=== PATIENT | female | born 1985 | race Caucasian/White ===

== ENCOUNTER 2018-07-26 06:10 | Inpatient (IN) ==
[2018-07-26] MEDS ORDERED: Ketorolac Inj 30 MG/ML (IVP) Vial IV.PUSH ONE (06:27)
[2018-07-26] MEDS ORDERED: Sod Chloride 0.9% Inj 1,000 ML IV.SIG ONE (06:27)
[2018-07-26] MEDS ORDERED: Morphine Inj 4 MG/ML Vial IV.PUSH ONE ×4 (06:27→11:11)
--- NOTE | 2018-07-26 06:44 | ED ---
HPI General Chief complaint: Abdominal Pain Stated complaint: Rt side pain x 10 hrs Time Seen by Provider: 07/26/18 06:22 Source: patient Mode of arrival: ambulatory Limitations: no limitations History of Present Illness HPI narrative: 31-year-old woman presents emerged from quitting of severe right lower quadrant abdominal pain and right flank pain. Symptoms started about 10 PM last night. The been waxing and waning severity but overall getting progressively more severe throughout the evening. She states she has had pain similar in character but much more mild in severity associated with constipation in the past. She states she was trying of a bowel movement all night went several times but has not had any change in her pain. States she has never had pain this severe before. She is a history of appendectomy. She has a history of partial (uterus and cervix) hysterectomy for what she describes as her "cervix growing into my uterus" which I interpret to mean adenomyosis. She reports that she has not had to see a physician for her abdominal pain and a couple years. She reports she has had 2 CTs on her belly in her lifetime. Denies any urinary symptoms. Denies any vaginal bleeding or vaginal discharge. Reports a history of gastroparesis, and constant daily nausea. No vomiting since the onset of her symptoms. Related Data Home Medications Medication Instructions Recorded Confirmed albuterol sulfate 1.25 mg INHALATION Q4-6H PRN 07/26/18 07/26/18 lorazepam [Ativan] 2 mg PO TID 07/26/18 07/26/18 venlafaxine [Effexor XR] 75 mg PO DAILY 07/26/18 07/26/18 Allergies Allergy/AdvReac Type Severity Reaction Status Date / Time amoxicillin AdvReac Severe Urinary Verified 07/26/18 07:07 Freq (Inc/Dec) hydromorphone AdvReac Severe SOB Verified 07/26/18 07:07 acetaminophen AdvReac Intermediate VOMITING Verified 07/26/18 07:07 oxycodone AdvReac Intermediate VOMITING Verified 07/26/18 07:07 Review of Systems ROS: all other systems reviewed are negative [facility] Medical History Medical History History of anxiety (Acute) History of asthma (Acute) History of cervical cancer (Acute) History of depression (Acute) Surgical History Surgical History History of appendectomy (Acute) History of partial hysterectomy (Acute) History of tonsillectomy and adenoidectomy (Acute) Social History Social History Substance History: No History of Abuse Second Hand Smoke Exposure: No Smoking Status: Former smoker Tobacco Type: Cigarettes How Often Do You Have a Drink Containing Alcohol: Never Recent Travel in [facility] within the Last 8 Weeks: No Recent Out of Country Travel within the Last 8 Weeks: No Immunization History Tetanus Immunization: Unsure Exam Narrative Exam Narrative: GENERAL: 32-year-old woman, writhing in bed, tearful and crying. Somewhat hysterical. SKIN: Focused skin assessment warm/dry. HEAD: Atraumatic. Normocephalic. EYES: Pupils equal and round. No scleral icterus. No injection or drainage. ENT: No nasal bleeding or discharge. Mucous membranes pink and moist. NECK: Trachea midline. No JVD. CARDIOVASCULAR: Regular rate and rhythm. No murmur appreciated. RESPIRATORY: No accessory muscle use. Clear to auscultation. Breath sounds equal bilaterally. GASTROINTESTINAL: Abdomen is flat and soft. Moderate diffuse tenderness. Some voluntary guarding throughout. MUSCULOSKELETAL: No obvious deformities. No edema. NEUROLOGICAL: Awake and alert. No obvious cranial nerve deficits. Motor grossly within normal limits. Normal speech. Course Initial Documented Vital Signs Temperature 97.8 F 07/26/18 06:13 Pulse Rate 114 H 07/26/18 06:13 Respiratory Rate 20 07/26/18 06:13 Blood Pressure 151/97 H 07/26/18 06:13 Pulse Oximetry 98 07/26/18 06:13 Last Documented Vital Signs Temperature 97.8 F 07/26/18 16:00 Pulse Rate 56 L 07/26/18 16:00 Respiratory Rate 16 07/26/18 16:00 Blood Pressure 118/55 L 07/26/18 16:00 Pulse Oximetry 100 07/26/18 16:00 Medical Decision Making MDM Narrative Medical decision making narrative: 32-year-old woman who presents to the emergency department complaining of severe right sided abdominal and flank pain , more in the lower abdomen. Interestingly she attributes previous similar quality pain to constipation in the past. States that she has chronic problems with constipation. She is hysterically crying. She complains of generalized tenderness including in the epigastrium. Potential etiologies include renal lithiasis, ovarian torsion, obstruction, incarceration, ruptured ovarian cyst. Will start with IV, fluids, pain control, urine, CT. Reassess. Dr. Moreno: Patient is here for right lower quadrant pain, S/P appendectomy and hysterectomy , sudden onset right lower quadrant pain rated 10/10, patient is tearful here in the ER in position from the pain, she received 2 mg of Ativan, 30 mg IV Toradol, total of 12 mg of morphine without improvement of her pain. Labs shows leukocytosis with left shift, mildly low bicarb, CAT scan shows right adnexal mass confirmed on ultrasound. Differential at this point includes TOA versus ruptured ovarian cyst, given the extreme pain that the patient is experiencing along with the leukocytosis its unclear if there is underlying inflammatory process, it's highly unlikely to have an abscess after hysterectomy plus patient was afebrile throughout her ER stay and she denied any fever at home. Blood cultures were drawn and lactic acid normal, empiric Cipro and Flagyl was given because patient is allergic to amoxicillin. At this point patient will benefit from admission for further evaluation and management. Spoke with [facility] hospitalist Dr Olea who suggested to have [employer] body rolling machine tender Dr Pascual as a primary on the case. Medical Screen Exam Complete: Yes Emergency Medical Condition: Yes Lab Data Result diagrams: 07/26/18 06:35 07/26/18 06:35 Lab Results 07/26/18 07/26/18 07/26/18 Range/Units 06:30 06:35 06:35 CBC w Diff Auto diff final WBC 13.4 H (4.0-11.0) th/mm3 RBC 4.34 (4.00-5.30) mil/mm3 Hgb 13.5 (11.6-15.3) gm/dL Hct 39.0 (35.0-46.0) % MCV 89.9 (80.0-100.0) fL MCH 31.1 (27.0-34.0) pg MCHC 34.7 (32.0-36.0) % RDW 13.1 (11.6-17.2) % Plt Count 332 (150-450) th/mm3 MPV 9.0 (7.0-11.0) fL Neut % (Auto) 83.8 H (16.0-70.0) % Lymph % (Auto) 8.2 L (9.0-44.0) % [place] % (Auto) 4.4 (0.0-8.0) % Eos % (Auto) 0.5 (0.0-4.0) % Baso % (Auto) 3.1 H (0.0-2.0) % Neut # (Auto) 11.2 H (1.8-7.7) th/mm3 Lymph # (Auto) 1.1 (1.0-4.8) th/mm3 [place] # (Auto) 0.6 (0.0-0.9) th/mm3 Eos # (Auto) 0.1 (0.0-0.4) th/mm3 Baso # (Auto) 0.4 H (0.0-0.2) th/mm3 WBC Differential . Differential Comment . Sodium 137 (136-145) meq/L Potassium 4.2 (3.5-5.1) meq/L Chloride 108 H (98-107) meq/L Carbon Dioxide 19.5 L (21.0-32.0) meq/L Anion Gap 10 (5-15) meq/L BUN 10 (7-18) mg/dL Creatinine 1.00 (0.50-1.00) mg/dL Estimated GFR 64 L (>89) mL/min Random Glucose 125 H (74-106) mg/dL Lactic Acid (0.4-2.0) mmol/L Calcium 9.4 (8.5-10.1) mg/dL Magnesium 2.3 (1.5-2.5) mg/dL Total Bilirubin 0.5 (0.2-1.0) mg/dL AST 13 L (15-37) U/L ALT 19 (10-53) U/L Alkaline Phosphatase 66 (45-117) U/L Total Protein 8.2 (6.4-8.2) g/dL Albumin 4.4 (3.4-5.0) g/dL Lipase 125 (73-393) U/L Beta HCG, Quant (0-5) mIU/mL Ur Collection Type Clean catch Urine Color Yellow (Yellw/Straw) Urine Clarity Clear (Clear) Urine pH 5.5 (5.0-8.5) Ur Specific [place] Greater/equal 1.030 (1.002-1.035) Urine Protein Negative (Neg-Trace) mg/dL Urine Glucose (UA) Negative (Negative) mg/dL Urine Ketones Negative (Negative) mg/dL Urine Occult Blood Trace (Negative) Urine Nitrate Negative (Negative) Urine Bilirubin Negative (Negative) Urine Urobilinogen 0.2 (Less than 2) mg/dL Ur Leukocyte Esterase Negative (Negative) Urine RBC 0-3 (0-3) /hpf Ur Squamous Epith Cells 0-5 (0-5) /hpf Micro UA Comment Culture not ind Ur Microscopic Review Microscopic reviewed Urine Culture Comments Culture not ind 07/26/18 07/26/18 Range/Units 06:35 08:25 CBC w Diff WBC (4.0-11.0) th/mm3 RBC (4.00-5.30) mil/mm3 Hgb (11.6-15.3) gm/dL Hct (35.0-46.0) % MCV (80.0-100.0) fL MCH (27.0-34.0) pg MCHC (32.0-36.0) % RDW (11.6-17.2) % Plt Count (150-450) th/mm3 MPV (7.0-11.0) fL Neut % (Auto) (16.0-70.0) % Lymph % (Auto) (9.0-44.0) % [place] % (Auto) (0.0-8.0) % Eos % (Auto) (0.0-4.0) % Baso % (Auto) (0.0-2.0) % Neut # (Auto) (1.8-7.7) th/mm3 Lymph # (Auto) (1.0-4.8) th/mm3 [place] # (Auto) (0.0-0.9) th/mm3 Eos # (Auto) (0.0-0.4) th/mm3 Baso # (Auto) (0.0-0.2) th/mm3 WBC Differential Differential Comment Sodium (136-145) meq/L Potassium (3.5-5.1) meq/L Chloride (98-107) meq/L Carbon Dioxide (21.0-32.0) meq/L Anion Gap (5-15) meq/L BUN (7-18) mg/dL Creatinine (0.50-1.00) mg/dL Estimated GFR (>89) mL/min Random Glucose (74-106) mg/dL Lactic Acid 0.9 (0.4-2.0) mmol/L Calcium (8.5-10.1) mg/dL Magnesium (1.5-2.5) mg/dL Total Bilirubin (0.2-1.0) mg/dL AST (15-37) U/L ALT (10-53) U/L Alkaline Phosphatase (45-117) U/L Total Protein (6.4-8.2) g/dL Albumin (3.4-5.0) g/dL Lipase (73-393) U/L Beta HCG, Quant Less than 1 (0-5) mIU/mL Ur Collection Type Urine Color (Yellw/Straw) Urine Clarity (Clear) Urine pH (5.0-8.5) Ur Specific [place] (1.002-1.035) Urine Protein (Neg-Trace) mg/dL Urine Glucose (UA) (Negative) mg/dL Urine Ketones (Negative) mg/dL Urine Occult Blood (Negative) Urine Nitrate (Negative) Urine Bilirubin (Negative) Urine Urobilinogen (Less than 2) mg/dL Ur Leukocyte Esterase (Negative) Urine RBC (0-3) /hpf Ur Squamous Epith Cells (0-5) /hpf Micro UA Comment Ur Microscopic Review Urine Culture Comments Imaging Data Radiologist's impression: Abdomen/Pelvis CT 07/26/18 06:27 CONCLUSION: 1. Abnormal bowel gas pattern suggesting ileus 2. Small irregularly-shaped abnormal area of contrast enhancement in the right adnexa region. This could be related to inflammatory process. There is no ascites. 3. Correlation suggested. Abdomen/Pelvis/Transvag US 07/26/18 07:49 CONCLUSION: 1. Abnormal right adnexa region. Considerations include inflammatory process and more likely a collapsing right ovarian cyst with trace free fluid. 2. Symmetrical blood flow in both adnexa. 3. Discussed with the ER physician. Discharge Plan Discharge Disposition Patient Disposition: ED Admit(ED Internal Use Only) Discharge Order Discharge Orders: ED Use Only Admit Order (Routine); Ordered 07/26/18 Ordered By: Dilip Moreno Physicians Team ED Provider: Junior Johnson Primary Care Provider: Sadia Fontenot Attending Provider: Emily Pascual Other Providers: Luis Miguel Henriquez V ; Rajendra Olea Discharge Interventions Interventions: Vital Signs Last Done: 07/26/18 12:05 ED Discharge Assessment Last Done: 07/26/18 12:22 Discharge Planning - Case Management Last Done: 07/26/18 11:15 Status ED Status: Left Department Discharge Information Discharge Date/Time: 07/26/18 12:10
[2018-07-26 06:50] LABS: Baso # (Auto) 0.4 th/mm3 (0.0-0.2); Baso % (Auto) 3.1 % (0.0-2.0); Eos # (Auto) 0.1 th/mm3 (0.0-0.4); Eos % (Auto) 0.5 % (0.0-4.0); Hemoglobin 13.5 gm/dL (11.6-15.3); Lymph # (Auto) 1.1 th/mm3 (1.0-4.8); Lymph % (Auto) 8.2 % (9.0-44.0); Mean Corpuscular HGB Conc 34.7 % (32.0-36.0); Mean Corpuscular Hemoglobin 31.1 pg (27.0-34.0); Mean Corpuscular Volume 89.9 fL (80.0-100.0); Mono # (Auto) 0.6 th/mm3 (0.0-0.9); Mono % (Auto) 4.4 % (0.0-8.0); Neut # (Auto) 11.2 th/mm3 (1.8-7.7); Neut % (Auto) 83.8 % (16.0-70.0); Platelet Count 332 th/mm3 (150-450); Red Blood Count 4.34 mil/mm3 (4.00-5.30); Red Cell Distribution Width 13.1 % (11.6-17.2); White Blood Count 13.4 th/mm3 (4.0-11.0)
[2018-07-26 06:55] LABS: Chloride 108 meq/L (98-107); Potassium 4.2 meq/L (3.5-5.1); Sodium 137 meq/L (136-145)
[2018-07-26 06:58] LABS: Albumin 4.4 g/dL (3.4-5.0); Anion Gap 10 meq/L (5-15); Blood Urea Nitrogen 10 mg/dL (7-18); Calcium 9.4 mg/dL (8.5-10.1); Carbon Dioxide 19.5 meq/L (21.0-32.0); Glucose,Random 125 mg/dL (74-106); Lipase 125 U/L (73-393); Magnesium 2.3 mg/dL (1.5-2.5)
[2018-07-26 07:01] LABS: Alanine Aminotransferase 19 U/L (10-53); Aspartate Aminotransferase 13 U/L (15-37); Glomerular Filtration Rate 64 mL/min (>89)
[2018-07-26 07:01] LABS: Bilirubin,Urine Negative (Negative); Clarity,Urine Clear (Clear); Color,Urine Yellow (Yellw/Straw); Glucose,Urine (UA) Negative (Negative); Leukocyte Esterase,Urine Negative (Negative); Nitrite,Urine Negative (Negative); PH,Urine 5.5 (5.0-8.5); Specific Gravity,Urine Greater/Equal 1.030 (1.002-1.035); Urobilinogen,Urine 0.2 mg/dL (Less than 2)
[2018-07-26 07:03] LABS: Total Protein 8.2 g/dL (6.4-8.2)
[2018-07-26 07:04] LABS: Alkaline Phosphatase 66 U/L (45-117)
[2018-07-26 07:07] LABS: RBC,Urine 0-3 /hpf (0-3); Squamous Epithelial Cell,Urine 0-5 /hpf (0-5)
--- NOTE | 2018-07-26 07:46 | CT ---
EXAM DATE: 07/26/2018 7:35 AM EST AGE/SEX: 32 years / Female INDICATIONS: Right abdominal pain. Lower abdominal pain. Nausea. Constipation. CLINICAL DATA: This is the patient's initial encounter. Patient reports that signs and symptoms have been present for 1 day and indicates a pain score of 10/10. MEDICAL/SURGICAL HISTORY: Asthma. Carcinoma, cervical. Gastroparesis. Appendectomy. Tonsill ectomy. Adenoidectomy. Partial hysterectomy. ORAL CONTRAST: No oral contrast ingested. RADIATION DOSE: 7.77 CTDI (mGy) COMPARISON: [facility], CT ABDOMEN AND PELVIS W AND W/O CONTRAST, 01/22/2018. . TECHNIQUE: Multiple contiguous axial images were obtained through the abdomen and pelvis following b olus infusion of 90 ml Omnipaque 350 (iohexol) nonionic water-soluble contrast as a single exam dos e. No oral contrast ingested. Using automated exposure control and adjustment of the mA and/or kV ac cording to patient size, radiation dose was kept as low as reasonably achievable to obtain optimal di agnostic quality images. DICOM format image data is available electronically for review and comparis on. FINDINGS: The lower lungs are clear. Liver, spleen, pancreas, adrenals and kidneys are unremarkable. There is symmetrical renal function There is no ascites or mesenteric adenopathy. Bowel gas pattern abnormal with fluid-filled colon and distal small bowel. This has more the appearan ce of an ileus. There is very minimal enhancement about the right adnexa a small irregular shaped 1.7 cm masslike den sity in the right adnexa region. Patient had a history of previous partial hysterectomy and cervical cancer. This could be a small tubo-ovarian abscess. This is an unusual location for adenopathy. There is no obturator or inguinal adenopathy. CONCLUSION: 1. Abnormal bowel gas pattern suggesting ileus 2. Small irregularly-shaped abnormal area of contrast enhancement in the right adnexa region. This c ould be related to inflammatory process. There is no ascites. 3. Correlation suggested. Electronically signed by: Bk Michel MD Board Certified Radiologist 07/26/2018 7:44 AM EST
[2018-07-26] MEDS ORDERED: Ciprofloxacin 400 MG/200 ML 400 MG/200 ML PIGGYBACK IV.SIG ONE (08:52)
--- NOTE | 2018-07-26 08:56 | US ---
EXAM DATE: 07/26/2018 8:25 AM EST AGE/SEX: 32 years / Female INDICATIONS: Right lower quadrant pain. CLINICAL DATA: This is the patient's initial encounter. Patient reports that signs and symptoms have been present for 1 day and indicates a pain score of 10/10. MEDICAL/SURGICAL HISTORY: . Cervical cancer. Appendectomy. Tonsillectomy. Partial hysterectom y. COMPARISON: [facility], CT ABDOMEN & PELVIS W CONTRAST, 07/26/2018. . MEASUREMENTS: Uterus:__. Surgically absent. Endometrial Stripe:__N/A Right Ovary:__ 4.3 x 2.6 x 2.3 cm Left Ovary:__ 3.1 x 2.7 x 1.7 cm FINDINGS: Uterus: Surgically absent. Endometrial Stripe: Surgically absent. Right Ovary: Complex 1.6 centimeter cyst area is present in the right adnexa region subdural was desc ribed on the CT scan of the pelvis. Considerations would include both an inflammatory process and col lapsing ovarian cyst. There is minimal free fluid in the pelvis. Left Ovary: Ovary contains no mass. Follicles are present. Fluid: Trace free fluid. CONCLUSION: 1. Abnormal right adnexa region. Considerations include inflammatory process and more likely a colla psing right ovarian cyst with trace free fluid. 2. Symmetrical blood flow in both adnexa. 3. Discussed with the ER physician. Electronically signed by: Bk Michel MD Board Certified Radiologist 07/26/2018 8:55 AM EST
--- NOTE | 2018-07-26 09:43 | P.CONOB ---
History of Present Illness - Data of Consult Patient: new to practice Consult date: 07/26/18 Requesting Physician: Dr. Moreno -- ED Primary Care Provider: Sadia Fontenot MD Family Provider: Sadia Fontenot MD - Consult Narrative Reason for consult: other (1.6 cm ovarian cyst, elevated WBC, ileus, severe pain ) Narrative: Anali Fernandez is a 32 year old female I was called to consult on this patient (Dr. Moreno) with a 1.6 cm right complex ovarian cyst, severe RLQ pain, elevated white count and ileus. According to Dr. Moreno, medicine service had been consulted (there is a note from Dr. Schulz -- ED [place]) who referred care to DISPLAY COORDINATOR service. The patient has h/o IBS, gastroparesis, nausea, vomiting, diarrhea. Was seen in ED in Apr 2016 with elevated white count of 12.4 and discharged home with recommendations to see her GI and PCP physicians. The CT scan and DISPLAY COORDINATOR US done today show an abnormal gas pattern consistent with ileus and a complex right ovarian cyst measuring 1.6 cm with possible inflammation in right adnexa. The patient is s/p hysterectomy for cervical cancer therefore, the possibility of having an infectious process in the right ovary/fallopian tube is very low. I evaluated the patient in [place] ED. She c/o severe abdominal pain "worse than in 2016". The patient and her family report frequent episodes of abdominal pain "she always has issues". The was teary during the interview stating frustration about the inability to see a GI specialist (Dr. Ames and later "Sumit"). "I have tried for seven months to make an appointment and no one calls me back". The patient sees Dr. Guido for her gynecological care. Reports normal pap smears since her surgery in 2002 for cervical cancer. The patient is only taking Omeprazole for her GI issues but hasn't had any evaluation for a while. [facility] - History History Provided By: Patient - Medical History Medical History: Medical History (Last Reviewed 07/26/18 @ 06:42 by Junior Johnson MD) History of anxiety History of asthma History of cervical cancer History of depression - Surgical History Surgical History: Surgical History (Last Reviewed 07/26/18 @ 06:42 by Junior Johnson MD) History of appendectomy History of partial hysterectomy History of tonsillectomy and adenoidectomy - Tobacco History Tobacco Use In Past 30 Days: Yes Smoking Status: Former smoker Tobacco Type: Cigarettes - Alcohol History How Often Do You Have a Drink Containing Alcohol: Never - Substance Use History Substance History: No History of Abuse - Travel History Recent Travel in the [place] Within the Last 8 Weeks: No Recent Travel Out of the Country Within the Last 8 Weeks: No - Immunization History Tetanus Immunization: Unsure Medications and Allergies Active Medications: Active Medications Metronidazole/Sodium Chloride (Flagyl 500 Mg Inj) 100 mls @ 100 mls/hr IV.SIG ONCE ONE Stop: 07/26/18 09:51 Ciprofloxacin/Dextrose (Cipro 400 Mg/200 Ml Inj) 400 mg in 200 mls @ 200 mls/ hr IV.SIG ONCE ONE Stop: 07/26/18 09:51 Last Admin: 07/26/18 09:03 Dose: 200 mls/hr Sodium Chloride (Ns Flush) 2 ml IV.FLUSH PRN PRN PRN Reason: FLUSH AFTER USING IV ACCESS Allergies Allergy/AdvReac Type Severity Reaction Status Date / Time amoxicillin AdvReac Severe Urinary Verified 07/26/18 07:07 Freq (Inc/Dec) hydromorphone AdvReac Severe SOB Verified 07/26/18 07:07 acetaminophen AdvReac Intermediate VOMITING Verified 07/26/18 07:07 oxycodone AdvReac Intermediate VOMITING Verified 07/26/18 07:07 Home Medications Medication Instructions Recorded Confirmed Type albuterol sulfate 1.25 mg INHALATION Q4-6H PRN 07/26/18 07/26/18 History lorazepam [Ativan] 2 mg PO TID 07/26/18 07/26/18 History venlafaxine [Effexor XR] 75 mg PO DAILY 07/26/18 07/26/18 History Physical Exam Vital signs: Temp Pulse Resp BP Pulse Ox 97.8 F 76 17 116/76 100 07/26/18 06:13 07/26/18 08:01 07/26/18 08:30 07/26/18 08:01 07/26/18 08:01 - Constitutional mild distress Comments: teary during interview - Routine Abdominal Exam Present: soft, guarding Comments: tender in right pelvis / right lower abdomen Results - Labs CBC & Chem 7: 07/26/18 06:35 07/26/18 06:35 Labs: Short CBC 07/26/18 Range/Units 06:35 WBC 13.4 H (4.0-11.0) th/mm3 Hgb 13.5 (11.6-15.3) gm/dL Hct 39.0 (35.0-46.0) % Plt Count 332 (150-450) th/mm3 BMP 07/26/18 06:35 Sodium 137 Potassium 4.2 Chloride 108 H Carbon Dioxide 19.5 L BUN 10 Creatinine 1.00 Calcium 9.4 Liver Function 07/26/18 Range/Units 06:35 Total Bilirubin 0.5 (0.2-1.0) mg/dL AST 13 L (15-37) U/L ALT 19 (10-53) U/L Alkaline Phosphatase 66 (45-117) U/L Albumin 4.4 (3.4-5.0) g/dL Urine 07/26/18 Range/Units 06:30 Urine Color Yellow (Yellw/Straw) Urine Clarity Clear (Clear) Urine pH 5.5 (5.0-8.5) Ur Specific [place] Greater/equal 1.030 (1.002-1.035) Urine Protein Negative (Neg-Trace) mg/dL Urine Glucose (UA) Negative (Negative) mg/dL - Imaging Impressions Abdomen/Pelvis CT 07/26/18 06:27 CONCLUSION: 1. Abnormal bowel gas pattern suggesting ileus 2. Small irregularly-shaped abnormal area of contrast enhancement in the right adnexa region. This could be related to inflammatory process. There is no ascites. 3. Correlation suggested. Abdomen/Pelvis/Transvag US 07/26/18 07:49 CONCLUSION: 1. Abnormal right adnexa region. Considerations include inflammatory process and more likely a collapsing right ovarian cyst with trace free fluid. 2. Symmetrical blood flow in both adnexa. 3. Discussed with the ER physician. Assessment and Plan - Assessment (1) Ileus Code(s): K56.7 - Ileus, unspecified Status: Acute (2) Elevated white blood cell count Code(s): D72.829 - Elevated white blood cell count, unspecified Status: Acute (3) Right ovarian cyst Code(s): N83.201 - Unspecified ovarian cyst, right side Status: Acute - Plan 1. discussed the case with house wirer helper Jackson -- recommended to keep the patient in [place]; transfer is not indicated at this time 2. discussed the case with Dr Olea (national sales manager for [facility]) who agrees with treatment plan 3. recommended a consult with GI since the patient has h/o GI issues and CT scan suggests ileus 4. will treat patient with IV fluids and IV antibiotics and repeat labs in am 5. will keep patient NPO 6. visited the patient again in her hospital room to review treatment plan and explain CT scan findings as well as possible causes of her severe pain 7. discussed ovarian cysts which can be followed as outpatient -- the patient would like to f/up with Dr. Guido since she has been her textile cutting machine operator since 2012 8. discussed importance of yearly pap smears since she has a diagnosis of ovarian cancer 9. answered patient's and family's questions; they verbalized understanding and agreement to the treatment plan Thank you for the consult.
[2018-07-26] MEDS ORDERED: Pantoprazole Inj 40 MG Vial IV.PUSH ONE (14:00)
--- NOTE | 2018-07-26 14:04 | P.CON ---
History of Present Illness Service: [facility] hospitalist Consult date: 07/26/18 Requesting Physician: Emily Pascual Reason for Consult: abdominal pain elevated WBC count Primary Care Provider: Sadia Fontenot MD Chief Complaint: severe abdominal pain History of Present Illness: 32-year-old white female who has a history of chronic gastroparesis for over the last 5 years and followed by gastroenterology last seen in the spring underwent a CAT scan which was unremarkable at that time had a colon Endo already and has been treated with several different medications for gastroparesis she has had no results with treatments and is being considered for Botox treatment for the gastroparesis. She is tried to get into GI and has been recently unsuccessful. Patient has a history of asthma depression is on depression medication as well as anxiety is on lorazepam has been on Protonix for her abdominal pain she has a history of a hysterectomy tonsillectomy and appendix surgery in the past. The pain is described as cramping stabbing pain it has been continuous and it sounds like it has been present for at least 5 years mainly in the upper quadrant today's pain is in the lower quadrant quadrant but she said she has had it there as well. CAT scan in the emergency room showed a ileus pattern and a possible rupture of any ovarian cyst on the right side. Gynecology did see the patient, felt that the cyst was not that significant to cause this much pain. Patient is now on IV fluids was started empirically on Cipro and Flagyl will ask for GI evaluation she is on morphine for pain and Zofran we will continue Protonix IV for now. Review of Systems All other systems reviewed negative except as stated in HPI PMFSH - History History Provided By: Patient - Medical History Medical History: Medical History (Last Reviewed 07/26/18 @ 14:00 by Rajendra Olea MD) History of anxiety History of asthma History of cervical cancer History of depression - Surgical History Surgical History: Surgical History (Last Reviewed 07/26/18 @ 14:00 by Rajendra Olea MD) History of appendectomy History of partial hysterectomy History of tonsillectomy and adenoidectomy - Tobacco History Tobacco Use In Past 30 Days: Yes Smoking Status: Former smoker Tobacco Type: Cigarettes - Alcohol History How Often Do You Have a Drink Containing Alcohol: Never - Substance Use History Substance History: No History of Abuse - Travel History Recent Travel in the [facility] Within the Last 8 Weeks: No Recent Travel Out of the Country Within the Last 8 Weeks: No - Immunization History Tetanus Immunization: Unsure Medications and Allergies Active Medications: Active Medications Acetaminophen (Ofirmev Inj) 650 mg in 65 mls @ 400 mls/hr IV.SIG Q6H MONICA Stop: 07/27/18 08:10 Potassium Chloride 10 meq/ (Sodium Chloride) 1,005 mls @ 125 mls/hr IV.CONT .Q8H3M MONICA Ciprofloxacin/Dextrose (Cipro 400 Mg/200 Ml Inj) 400 mg in 200 mls @ 200 mls/ hr IV.SIG Q8H MONICA Morphine Sulfate (Morphine Inj) 2 mg IV.PUSH Q3H PRN PRN Reason: PAIN 6-10 Ondansetron HCl (Zofran Inj) 4 mg IV.PUSH Q6H PRN PRN Reason: NAUSEA OR VOMITING Pantoprazole Sodium (Protonix Inj) 40 mg IV.PUSH ONCE ONE Stop: 07/26/18 13:52 Pantoprazole Sodium (Protonix Inj) 40 mg IV.PUSH Q24H MONICA Sodium Chloride (Ns Flush) 2 ml IV.FLUSH PRN PRN PRN Reason: FLUSH AFTER USING IV ACCESS Allergies Allergy/AdvReac Type Severity Reaction Status Date / Time amoxicillin AdvReac Severe Urinary Verified 07/26/18 07:07 Freq (Inc/Dec) hydromorphone AdvReac Severe SOB Verified 07/26/18 07:07 acetaminophen AdvReac Intermediate VOMITING Verified 07/26/18 07:07 oxycodone AdvReac Intermediate VOMITING Verified 07/26/18 07:07 Home Medications Medication Instructions Recorded Confirmed Type albuterol sulfate 1.25 mg INHALATION Q4-6H PRN 07/26/18 07/26/18 History lorazepam [Ativan] 2 mg PO TID 07/26/18 07/26/18 History venlafaxine [Effexor XR] 75 mg PO DAILY 07/26/18 07/26/18 History Physical Exam Vital signs: Vital Signs 07/26/18 06:13 07/26/18 06:27 07/26/18 06:57 Temperature 97.8 F Pulse Rate 114 H 112 H 105 H Respiratory Rate 20 20 18 Blood Pressure 151/97 H 138/88 Pulse Oximetry 98 99 98 07/26/18 07:04 07/26/18 07:05 07/26/18 07:30 Temperature Pulse Rate Respiratory Rate 18 18 18 Blood Pressure Pulse Oximetry 07/26/18 08:01 07/26/18 08:30 07/26/18 09:45 Temperature Pulse Rate 76 82 Respiratory Rate 20 17 20 Blood Pressure 116/76 108/72 Pulse Oximetry 100 99 07/26/18 11:25 07/26/18 12:05 07/26/18 12:33 Temperature 97.5 F L Pulse Rate 75 63 Respiratory Rate 16 18 16 Blood Pressure 118/71 129/71 Pulse Oximetry 99 98 Intake & Output 07/25/18 07/26/18 07/26/18 18:59 06:59 18:59 Intake Total 1300 / 1300 Balance 1300 / 1300 Weight 69.9 kg Intake: IV 1300 / 1300 Cipro 400 MG/200 ML Inj 400 mg 200 / 200 In 200 ml @ 200 mls/hr IV.SIG ONCE ONE Rx#:[id number] NS Inj 1,000 ML @ Wide Open IV. 1000 / 1000 SIG BOLUS ONE Rx#:[id number] Flagyl 500 MG Inj 100 ML @ 100 100 / 100 mls/hr IV.SIG ONCE ONE Rx#: [id number] Narrative: GENERAL: SKIN: Warm and dry. HEAD: Normocephalic. EYES: No scleral icterus. No injection or drainage. NECK: Supple, trachea midline. No JVD or lymphadenopathy. CARDIOVASCULAR: Regular rate and rhythm without murmurs, gallops, or rubs. RESPIRATORY: Breath sounds equal bilaterally. No accessory muscle use. GASTROINTESTINAL: Abdomen tender on direct palpation right upper and lower quadrants no rebound MUSCULOSKELETAL: No cyanosis, or edema. BACK: Nontender without obvious deformity. No CVA tenderness. Results - Labs CBC & Chem 7: 07/26/18 06:35 07/26/18 06:35 Labs: Laboratory Results - last 24 hr 07/26/18 07/26/18 07/26/18 06:30 06:35 06:35 CBC w Diff Auto diff final WBC 13.4 H RBC 4.34 Hgb 13.5 Hct 39.0 MCV 89.9 MCH 31.1 MCHC 34.7 RDW 13.1 Plt Count 332 MPV 9.0 Neut % (Auto) 83.8 H Lymph % (Auto) 8.2 L [place] % (Auto) 4.4 Eos % (Auto) 0.5 Baso % (Auto) 3.1 H Neut # (Auto) 11.2 H Lymph # (Auto) 1.1 [place] # (Auto) 0.6 Eos # (Auto) 0.1 Baso # (Auto) 0.4 H WBC Differential . Differential Comment . Sodium 137 Potassium 4.2 Chloride 108 H Carbon Dioxide 19.5 L Anion Gap 10 BUN 10 Creatinine 1.00 Estimated GFR 64 L Random Glucose 125 H Lactic Acid Calcium 9.4 Magnesium 2.3 Total Bilirubin 0.5 AST 13 L ALT 19 Alkaline Phosphatase 66 Total Protein 8.2 Albumin 4.4 Lipase 125 Beta HCG, Quant Ur Collection Type Clean catch Urine Color Yellow Urine Clarity Clear Urine pH 5.5 Ur Specific [place] Greater/equal 1.030 Urine Protein Negative Urine Glucose (UA) Negative Urine Ketones Negative Urine Occult Blood Trace Urine Nitrate Negative Urine Bilirubin Negative Urine Urobilinogen 0.2 Ur Leukocyte Esterase Negative Urine RBC 0-3 Ur Squamous Epith Cells 0-5 Micro UA Comment Culture not ind Ur Microscopic Review Microscopic reviewed Urine Culture Comments Culture not ind 07/26/18 07/26/18 06:35 08:25 CBC w Diff WBC RBC Hgb Hct MCV MCH MCHC RDW Plt Count MPV Neut % (Auto) Lymph % (Auto) [place] % (Auto) Eos % (Auto) Baso % (Auto) Neut # (Auto) Lymph # (Auto) [place] # (Auto) Eos # (Auto) Baso # (Auto) WBC Differential Differential Comment Sodium Potassium Chloride Carbon Dioxide Anion Gap BUN Creatinine Estimated GFR Random Glucose Lactic Acid 0.9 Calcium Magnesium Total Bilirubin AST ALT Alkaline Phosphatase Total Protein Albumin Lipase Beta HCG, Quant Less than 1 Ur Collection Type Urine Color Urine Clarity Urine pH Ur Specific [place] Urine Protein Urine Glucose (UA) Urine Ketones Urine Occult Blood Urine Nitrate Urine Bilirubin Urine Urobilinogen Ur Leukocyte Esterase Urine RBC Ur Squamous Epith Cells Micro UA Comment Ur Microscopic Review Urine Culture Comments - Imaging Impressions Abdomen/Pelvis CT 07/26/18 06:27 CONCLUSION: 1. Abnormal bowel gas pattern suggesting ileus 2. Small irregularly-shaped abnormal area of contrast enhancement in the right adnexa region. This could be related to inflammatory process. There is no ascites. 3. Correlation suggested. Abdomen/Pelvis/Transvag US 07/26/18 07:49 CONCLUSION: 1. Abnormal right adnexa region. Considerations include inflammatory process and more likely a collapsing right ovarian cyst with trace free fluid. 2. Symmetrical blood flow in both adnexa. 3. Discussed with the ER physician. Assessment and Plan - Assessment (1) Abdominal pain Code(s): R10.9 - Unspecified abdominal pain Status: Acute Plan: Persistent abdominal pain with slight ileus on CAT scan will ask for GI evaluation and Protonix IV keep patient n.p.o. give IV fluids empirically on Cipro and Flagyl we will continue that for now await GI evaluation (2) Anxiety Code(s): F41.9 - Anxiety disorder, unspecified Status: Acute Plan: Continue patient's anxiety medicine lorazepam (3) Elevated white blood cell count Code(s): D72.829 - Elevated white blood cell count, unspecified Status: Acute Plan: Slight elevation WBC count will follow (4) Ileus Code(s): K56.7 - Ileus, unspecified Status: Acute Plan: There is some direct tenderness on the right side of the abdomen no rebound belly otherwise is soft we will just keep n.p.o. and use IV fluids for now (5) Right ovarian cyst Code(s): N83.201 - Unspecified ovarian cyst, right side Status: Acute Plan: GI MICRO COMPUTER SPECIALIST has evaluated patient for the cyst and will follow - Plan Further plan as case develops Code Status: Full Discussed Condition With: Patient
[2018-07-26] MEDS: Morphine Inj 4 MG/ML Vial IV.PUSH PRN ×4 (14:05→23:56)
[2018-07-26] MEDS: Potassium Chloride Inj 10 MEQ in Sodium Chloride 0.45 % Inj 1,000 ML IV.CONT SCH (14:29)
[2018-07-26] MEDS: Acetaminophen Inj 650 MG/65 ML VIAL IV.SIG SCH ×2 (14:29→21:08)
[2018-07-26] MEDS: Ciprofloxacin 400 MG/200 ML 400 MG/200 ML PIGGYBACK IV.SIG SCH (17:01)
[2018-07-27] MEDS: Potassium Chloride Inj 10 MEQ in Sodium Chloride 0.45 % Inj 1,000 ML IV.CONT SCH ×3 (00:01→20:51)
[2018-07-27] MEDS: Ciprofloxacin 400 MG/200 ML 400 MG/200 ML PIGGYBACK IV.SIG SCH ×3 (01:22→17:07)
[2018-07-27] MEDS: Acetaminophen Inj 650 MG/65 ML VIAL IV.SIG SCH ×2 (02:47→08:02)
[2018-07-27] MEDS: Morphine Inj 4 MG/ML Vial IV.PUSH PRN ×7 (03:00→22:00)
[2018-07-27 07:25] LABS: Baso # (Auto) 0.1 th/mm3 (0.0-0.2); Baso % (Auto) 0.9 % (0.0-2.0); Eos # (Auto) 0.3 th/mm3 (0.0-0.4); Eos % (Auto) 4.9 % (0.0-4.0); Hematocrit 33.3 % (35.0-46.0); Hemoglobin 11.1 gm/dL (11.6-15.3); Lymph # (Auto) 2.4 th/mm3 (1.0-4.8); Lymph % (Auto) 39.9 % (9.0-44.0); Mean Corpuscular HGB Conc 33.4 % (32.0-36.0); Mean Corpuscular Hemoglobin 30.5 pg (27.0-34.0); Mean Corpuscular Volume 91.3 fL (80.0-100.0); Mean Platelet Volume 9.2 fL (7.0-11.0); Mono # (Auto) 0.4 th/mm3 (0.0-0.9); Mono % (Auto) 6.8 % (0.0-8.0); Neut # (Auto) 2.8 th/mm3 (1.8-7.7); Neut % (Auto) 47.5 % (16.0-70.0); Platelet Count 232 th/mm3 (150-450); Red Blood Count 3.65 mil/mm3 (4.00-5.30)
--- NOTE | 2018-07-27 08:05 | P.PN ---
Subjective Interval history: She denies any vomiting or nausea. States her abdominal pain is better this morning. She states that the importer exporter did come by and see her yesterday evening but there is no record of his visit in the chart at this time. She states that he told her he was going to do some endoscopy procedures on her but I do not see any orders for that yet. Physical Exam Vital signs: Vital Signs 07/26/18 08:01 07/26/18 08:30 07/26/18 09:45 Temperature Pulse Rate 76 82 Respiratory Rate 20 17 20 Blood Pressure 116/76 108/72 Pulse Oximetry 100 99 07/26/18 11:25 07/26/18 12:05 07/26/18 12:33 Temperature 97.5 F L Pulse Rate 75 63 Respiratory Rate 16 18 16 Blood Pressure 118/71 129/71 Pulse Oximetry 99 98 07/26/18 15:01 07/26/18 16:00 07/26/18 20:00 Temperature 97.8 F 98.3 F Pulse Rate 56 L 73 Respiratory Rate 0 L 16 18 Blood Pressure 118/55 L 130/73 Pulse Oximetry 100 100 07/27/18 00:00 07/27/18 02:45 07/27/18 03:00 Temperature 97.5 F L Pulse Rate 59 L Respiratory Rate 17 16 16 Blood Pressure 101/64 Pulse Oximetry 99 07/27/18 06:10 Temperature Pulse Rate Respiratory Rate 16 Blood Pressure Pulse Oximetry Intake & Output 07/26/18 07/27/18 07/27/18 18:59 06:59 18:59 Intake Total 1865 / 1865 1265 / 1265 Balance 1865 / 1865 1265 / 1265 Intake: IV 1565 / 1565 1265 / 1265 KCl Inj 10 MEQ In 1/2 Normal 1005 / 1005 Saline Inj 1,000 ML @ 125 mls/ hr IV.CONT .Q8H3M MONICA Rx#: [id number] Ofirmev Inj 650 mg In 65 ml @ 65 / 65 60 / 60 400 mls/hr IV.SIG Q6H MONICA Rx#: [id number] Cipro 400 MG/200 ML Inj 400 mg 400 / 400 200 / 200 In 200 ml @ 200 mls/hr IV.SIG Q8H MONICA Rx#:[id number] NS Inj 1,000 ML @ Wide Open IV. 1000 / 1000 SIG BOLUS ONE Rx#:[id number] Flagyl 500 MG Inj 100 ML @ 100 100 / 100 mls/hr IV.SIG ONCE ONE Rx#: [id number] Oral 300 / 300 Other: # Voids 4 # Bowel Movements 4 Narrative: This is a pleasant white female in no distress. HEENT: Pupils equal, EOMs intact, sclera nonicteric, mouth without lesions, nose without lesions Neck: No JVD, neck is supple, no carotid bruit Heart: Regular rate and rhythm without murmurs or gallops Lungs: Clear to auscultation Abdomen: Soft, no masses, no organomegaly. She has mild to moderate tenderness in the right lower abdomen and slight tenderness in the RUQ and epigastric region Extremities: No edema, pulses palpated, no calf tenderness Neuro: Alert, oriented Results - Labs CBC & Chem 7: 07/27/18 07:16 07/27/18 07:16 Laboratory Results - last 24 hr 07/26/18 07/26/18 07/27/18 06:35 08:25 07:16 CBC w Diff Auto diff final WBC 6.0 RBC 3.65 L Hgb 11.1 L D Hct 33.3 L MCV 91.3 MCH 30.5 MCHC 33.4 RDW 14.0 Plt Count 232 D MPV 9.2 Neut % (Auto) 47.5 Lymph % (Auto) 39.9 [place] % (Auto) 6.8 Eos % (Auto) 4.9 H Baso % (Auto) 0.9 Neut # (Auto) 2.8 Lymph # (Auto) 2.4 [place] # (Auto) 0.4 Eos # (Auto) 0.3 Baso # (Auto) 0.1 WBC Differential . Differential Comment . Sodium Potassium Chloride Lactic Acid 0.9 Beta HCG, Quant Less than 1 07/27/18 07:16 CBC w Diff WBC RBC Hgb Hct MCV MCH MCHC RDW Plt Count MPV Neut % (Auto) Lymph % (Auto) [place] % (Auto) Eos % (Auto) Baso % (Auto) Neut # (Auto) Lymph # (Auto) [place] # (Auto) Eos # (Auto) Baso # (Auto) WBC Differential Differential Comment Sodium 138 Potassium 4.0 Chloride 112 H Lactic Acid Beta HCG, Quant - Imaging Impressions Abdomen/Pelvis/Transvag US 07/26/18 07:49 CONCLUSION: 1. Abnormal right adnexa region. Considerations include inflammatory process and more likely a collapsing right ovarian cyst with trace free fluid. 2. Symmetrical blood flow in both adnexa. 3. Discussed with the ER physician. Abdomen/Pelvis CT 07/26/18 06:27 CONCLUSION: 1. Abnormal bowel gas pattern suggesting ileus 2. Small irregularly-shaped abnormal area of contrast enhancement in the right adnexa region. This could be related to inflammatory process. There is no ascites. 3. Correlation suggested. Abdomen/Pelvis/Transvag US 07/26/18 07:49 CONCLUSION: 1. Abnormal right adnexa region. Considerations include inflammatory process and more likely a collapsing right ovarian cyst with trace free fluid. 2. Symmetrical blood flow in both adnexa. 3. Discussed with the ER physician. Assessment and Plan - Assessment (1) Ileus Code(s): K56.7 - Ileus, unspecified Status: Acute (2) Abdominal pain Code(s): R10.9 - Unspecified abdominal pain Status: Acute (3) Anxiety Code(s): F41.9 - Anxiety disorder, unspecified Status: Acute (4) Right ovarian cyst Code(s): N83.201 - Unspecified ovarian cyst, right side Status: Acute (5) Gastroparesis Code(s): K31.84 - Gastroparesis Status: Chronic - Plan Plan: She apparently was seen by gastroenterology but there are no orders in the chart by them or any consult note in the EHR yet. She is clinically better with her pain decreased but still present more in the right lower and her white blood cell count has come down with antibiotic therapy. Continue antibiotics and await gastroenterology recommendations.
[2018-07-27 08:22] LABS: Calcium 8.1 mg/dL (8.5-10.1); Carbon Dioxide 20.4 meq/L (21.0-32.0)
--- NOTE | 2018-07-27 08:33 | P.PNOB ---
Progress Note: A/P (1) Ileus Status: Acute Code(s): K56.7 - Ileus, unspecified Current Visit: Yes (2) Elevated white blood cell count Status: Acute Code(s): D72.829 - Elevated white blood cell count, unspecified Current Visit: Yes (3) Right ovarian cyst Status: Acute Code(s): N83.201 - Unspecified ovarian cyst, right side Current Visit: Yes - Plan 1. reviewed labs -- white count has decreased 2. discussed case with Dr. Campbell -- awaiting feedback from GI 3. patient will f/up with her PRINTER FLOOR COVERING ASSISTANT physician as outpatient for pap smear and ovarian cysts 4. Thank you for the consult - Time Spent With Patient Total time spent is greater than 50% in coordination of care (as documented) at patient's floor/unit and/or counseling patient: less than 15 minutes Subjective Interval history: per RN, the patient is feeling better, would like to eat, states that GI specialist came to see her yesterday in late afternoon Physical Exam Vital signs: Temp Pulse Resp BP Pulse Ox 97.5 F L 59 L 16 101/64 99 07/27/18 00:00 07/27/18 00:00 07/27/18 06:10 07/27/18 00:00 07/27/18 00:00 Results - Labs CBC & Chem 7: 07/27/18 07:16 07/27/18 07:16 Labs: Laboratory Results - last 24 hr 07/26/18 07/26/18 07/27/18 06:35 08:25 07:16 CBC w Diff Auto diff final WBC 6.0 RBC 3.65 L Hgb 11.1 L D Hct 33.3 L MCV 91.3 MCH 30.5 MCHC 33.4 RDW 14.0 Plt Count 232 D MPV 9.2 Neut % (Auto) 47.5 Lymph % (Auto) 39.9 [place] % (Auto) 6.8 Eos % (Auto) 4.9 H Baso % (Auto) 0.9 Neut # (Auto) 2.8 Lymph # (Auto) 2.4 [place] # (Auto) 0.4 Eos # (Auto) 0.3 Baso # (Auto) 0.1 WBC Differential . Differential Comment . Sodium Potassium Chloride Carbon Dioxide Anion Gap BUN Creatinine Estimated GFR Random Glucose Lactic Acid 0.9 Calcium Beta HCG, Quant Less than 1 01/05/19 07:16 CBC w Diff WBC RBC Hgb Hct MCV MCH MCHC RDW Plt Count MPV Neut % (Auto) Lymph % (Auto) [place] % (Auto) Eos % (Auto) Baso % (Auto) Neut # (Auto) Lymph # (Auto) [place] # (Auto) Eos # (Auto) Baso # (Auto) WBC Differential Differential Comment Sodium 138 Potassium 4.0 Chloride 112 H Carbon Dioxide 20.4 L Anion Gap 6 BUN 5 L Creatinine 0.88 Estimated GFR 74 L Random Glucose 94 Lactic Acid Calcium 8.1 L D Beta HCG, Quant - Imaging Impressions Abdomen/Pelvis/Transvag US 07/26/18 07:49 CONCLUSION: 1. Abnormal right adnexa region. Considerations include inflammatory process and more likely a collapsing right ovarian cyst with trace free fluid. 2. Symmetrical blood flow in both adnexa. 3. Discussed with the ER physician.
[2018-07-27] MEDS: Venlafaxine XR 75 MG Capsule PO SCH (09:06)
--- NOTE | 2018-07-27 13:24 | P.PNGI ---
Subjective Interval history: Still complaining of abdominal pian, bloating, change in bowel habits Wants to try clear liquids . Patient seen by yesterday , dictation pending.CT abdomen/pelvis, us pelvis noted , auto body technician consult noted Physical Exam Vital signs: Vital Signs 07/26/18 15:01 07/26/18 16:00 07/26/18 20:00 Temperature 97.8 F 98.3 F Pulse Rate 56 L 73 Respiratory Rate 0 L 16 18 Blood Pressure 118/55 L 130/73 Pulse Oximetry 100 100 07/27/18 00:00 07/27/18 02:45 07/27/18 03:00 Temperature 97.5 F L Pulse Rate 59 L Respiratory Rate 17 16 16 Blood Pressure 101/64 Pulse Oximetry 99 07/27/18 06:10 07/27/18 08:00 07/27/18 09:04 Temperature 97.6 F Pulse Rate 54 L Respiratory Rate 16 18 16 Blood Pressure 92/53 L Pulse Oximetry 99 Intake & Output 07/26/18 07/27/18 07/27/18 18:59 06:59 18:59 Intake Total 1865 / 1865 1265 / 1265 1370 / 1370 Balance 1865 / 1865 1265 / 1265 1370 / 1370 Intake: IV 1565 / 1565 1265 / 1265 1370 / 1370 KCl Inj 10 MEQ In 1/2 Normal 1005 / 1005 1005 / 1005 Saline Inj 1,000 ML @ 125 mls/ hr IV.CONT .Q8H3M MONICA Rx#: [id number] Ofirmev Inj 650 mg In 65 ml @ 65 / 65 60 / 60 65 / 65 400 mls/hr IV.SIG Q6H MONICA Rx#: [id number] Cipro 400 MG/200 ML Inj 400 mg 400 / 400 200 / 200 200 / 200 In 200 ml @ 200 mls/hr IV.SIG Q8H MONICA Rx#:[id number] NS Inj 1,000 ML @ Wide Open IV. 1000 / 1000 SIG BOLUS ONE Rx#:[id number] Flagyl 500 MG Inj 100 ML @ 100 100 / 100 100 / 100 mls/hr IV.SIG Q8H MONICA Rx#: [id number] Oral 300 / 300 Other: # Voids 4 # Bowel Movements 4 - Constitutional mild distress - Routine HEENT Exam Head: Present: normocephalic Eye: Present: EOMI ENT: Present: mucous membranes moist - Routine Neck Exam Present: supple - Routine Respiratory Exam Present: CTA bilaterally - Routine Cardiovascular Exam Present: S1, S2 - Routine Abdominal Exam Present: soft, tenderness Comments: lower abdomen, right more than left - Routine Extremities Exam Present: full ROM, pulses intact - Routine Skin Exam Present: intact - Routine Neurological Exam Present: alert, oriented X3 - Routine Psychiatric Exam Present: normal affect Results - Labs CBC & Chem 7: 07/27/18 07:16 07/27/18 07:16 Laboratory Results - last 24 hr 07/27/18 07/27/18 07:16 07:16 CBC w Diff Auto diff final WBC 6.0 RBC 3.65 L Hgb 11.1 L D Hct 33.3 L MCV 91.3 MCH 30.5 MCHC 33.4 RDW 14.0 Plt Count 232 D MPV 9.2 Neut % (Auto) 47.5 Lymph % (Auto) 39.9 [place] % (Auto) 6.8 Eos % (Auto) 4.9 H Baso % (Auto) 0.9 Neut # (Auto) 2.8 Lymph # (Auto) 2.4 [place] # (Auto) 0.4 Eos # (Auto) 0.3 Baso # (Auto) 0.1 WBC Differential . Differential Comment . Sodium 138 Potassium 4.0 Chloride 112 H Carbon Dioxide 20.4 L Anion Gap 6 BUN 5 L Creatinine 0.88 Estimated GFR 74 L Random Glucose 94 Calcium 8.1 L D Microbiology 07/26/18 08:25 Blood - Peripheral Aerobic Blood Culture - Preliminary No growth in 1 day 07/26/18 08:25 Blood - Peripheral Anaerobic Blood Culture - Preliminary No growth in 1 day 07/26/18 08:30 Blood - Peripheral Aerobic Blood Culture - Preliminary No growth in 1 day 07/26/18 08:30 Blood - Peripheral Anaerobic Blood Culture - Preliminary No growth in 1 day Assessment and Plan - Plan gastroparesis nonresponsive to current medical treatment abdominal pain, abnormal right adnexa - possible pid-on iv antibiotics change in bowel habits-stool studies egd/botox/colonoscopy trial of bentyl 10 mg po tid clear liquid diet auto body technician fu continue antibiotics
[2018-07-27] MEDS: Pantoprazole Inj 40 MG Vial IV.PUSH SCH (14:14)
[2018-07-27] MEDS: Dicyclomine 10 MG Capsule PO SCH ×2 (17:07→22:00)
[2018-07-28] MEDS: Morphine Inj 4 MG/ML Vial IV.PUSH PRN ×6 (01:13→20:36)
[2018-07-28] MEDS: Ciprofloxacin 400 MG/200 ML 400 MG/200 ML PIGGYBACK IV.SIG SCH ×3 (02:20→17:14)
--- NOTE | 2018-07-28 06:54 | P.PN ---
Subjective Interval history: Her right lower quadrant abdominal pain is about the same according to the patient. She has no vomiting or diarrhea. Physical Exam Vital signs: Vital Signs 07/27/18 08:00 07/27/18 09:04 07/27/18 12:00 Temperature 97.6 F 98.1 F Pulse Rate 54 L 60 Respiratory Rate 18 16 18 Blood Pressure 92/53 L 98/67 L Pulse Oximetry 99 98 07/27/18 16:00 07/27/18 20:00 07/27/18 23:33 Temperature 97.5 F L 96.8 F L Pulse Rate 57 L 59 L Respiratory Rate 19 17 6 L Blood Pressure 120/63 125/64 Pulse Oximetry 98 96 07/28/18 00:00 Temperature 96.0 F L Pulse Rate 59 L Respiratory Rate 18 Blood Pressure 131/83 Pulse Oximetry 100 Intake & Output 07/27/18 07/27/18 07/28/18 06:59 18:59 06:59 Intake Total 1265 / 1265 2675 / 2675 300 / 300 Balance 1265 / 1265 2675 / 2675 300 / 300 Intake: IV 1265 / 1265 2675 / 2675 300 / 300 KCl Inj 10 MEQ In 1/2 Normal 1005 / 1005 2009 Saline Inj 1,000 ML @ 125 mls/ hr IV.CONT .Q8H3M [facility]ICA Rx#: [id number] Ofirmev Inj 650 mg In 65 ml @ 60 / 60 65 / 65 400 mls/hr IV.SIG Q6H MONICA Rx#: [id number] Cipro 400 MG/200 ML Inj 400 mg 200 / 200 400 / 400 200 / 200 In 200 ml @ 200 mls/hr IV.SIG Q8H MONICA Rx#:[id number] Flagyl 500 MG Inj 100 ML @ 100 200 / 200 100 / 100 mls/hr IV.SIG Q8H MONICA Rx#: [id number] Other: Date of Last Bowel Movement 07/26/18 07/26/18 Narrative: This is a pleasant white female in no distress. HEENT: Pupils equal, EOMs intact, sclera nonicteric, mouth without lesions, nose without lesions Neck: No JVD, neck is supple, no carotid bruit Heart: Regular rate and rhythm without murmurs or gallops Lungs: Clear to auscultation Abdomen: Soft, no masses, no organomegaly. She has mild to moderate tenderness in the right lower abdomen and slight tenderness in the RUQ and epigastric region. No rebound tenderness Extremities: No edema, pulses palpated, no calf tenderness Neuro: Alert, oriented Results - Labs CBC & Chem 7: 07/27/18 07:16 07/27/18 07:16 Laboratory Results - last 24 hr 07/27/18 07/27/18 07:16 07:16 CBC w Diff Auto diff final WBC 6.0 RBC 3.65 L Hgb 11.1 L D Hct 33.3 L MCV 91.3 MCH 30.5 MCHC 33.4 RDW 14.0 Plt Count 232 D MPV 9.2 Neut % (Auto) 47.5 Lymph % (Auto) 39.9 [place] % (Auto) 6.8 Eos % (Auto) 4.9 H Baso % (Auto) 0.9 Neut # (Auto) 2.8 Lymph # (Auto) 2.4 [place] # (Auto) 0.4 Eos # (Auto) 0.3 Baso # (Auto) 0.1 WBC Differential . Differential Comment . Sodium 138 Potassium 4.0 Chloride 112 H Carbon Dioxide 20.4 L Anion Gap 6 BUN 5 L Creatinine 0.88 Estimated GFR 74 L Random Glucose 94 Calcium 8.1 L D Microbiology 07/26/18 08:25 Blood - Peripheral Aerobic Blood Culture - Preliminary No growth in 1 day 07/26/18 08:25 Blood - Peripheral Anaerobic Blood Culture - Preliminary No growth in 1 day 07/26/18 08:30 Blood - Peripheral Aerobic Blood Culture - Preliminary No growth in 1 day 07/26/18 08:30 Blood - Peripheral Anaerobic Blood Culture - Preliminary No growth in 1 day - Imaging Abdomen/Pelvis CT 07/26/18 06:27 CONCLUSION: 1. Abnormal bowel gas pattern suggesting ileus 2. Small irregularly-shaped abnormal area of contrast enhancement in the right adnexa region. This could be related to inflammatory process. There is no ascites. 3. Correlation suggested. Abdomen/Pelvis/Transvag US 07/26/18 07:49 CONCLUSION: 1. Abnormal right adnexa region. Considerations include inflammatory process and more likely a collapsing right ovarian cyst with trace free fluid. 2. Symmetrical blood flow in both adnexa. 3. Discussed with the ER physician. Assessment and Plan - Assessment (1) Ileus Code(s): K56.7 - Ileus, unspecified Status: Acute (2) Abdominal pain Code(s): R10.9 - Unspecified abdominal pain Status: Acute (3) Anxiety Code(s): F41.9 - Anxiety disorder, unspecified Status: Acute (4) Right ovarian cyst Code(s): N83.201 - Unspecified ovarian cyst, right side Status: Acute Plan: (5) Gastroparesis Code(s): K31.84 - Gastroparesis Status: Chronic - Plan Plan: Patient seen by gastroenterology apparently and they are planning on doing any colonoscopy in Botox and injection tomorrow. Patient's pain is stable but not resolved. The dance instructor call me yesterday and stated she did not have anything further to recommend for the ovarian cyst other than follow-up as an outpatient with the dance instructor (patient sees Dr. Guido) with follow-up outpatient pelvic ultrasound to reevaluate the cyst which she considered small. Continue antibiotics.
[2018-07-28] MEDS: Dicyclomine 10 MG Capsule PO SCH ×4 (08:09→22:18)
[2018-07-28] MEDS: Venlafaxine XR 75 MG Capsule PO SCH (08:09)
[2018-07-28] MEDS: Potassium Chloride Inj 10 MEQ in Sodium Chloride 0.45 % Inj 1,000 ML IV.CONT SCH ×3 (08:10→21:56)
--- NOTE | 2018-07-28 09:21 | P.PNGI ---
Subjective Interval history: Still complaining of nausea, pain in rlq.no stools since yesterday. Tolerating clear liquids Physical Exam Vital signs: Vital Signs 07/27/18 12:00 07/27/18 16:00 07/27/18 20:00 Temperature 98.1 F 97.5 F L 96.8 F L Pulse Rate 60 57 L 59 L Respiratory Rate 18 19 17 Blood Pressure 98/67 L 120/63 125/64 Pulse Oximetry 98 98 96 07/27/18 23:33 07/28/18 00:00 Temperature 96.0 F L Pulse Rate 59 L Respiratory Rate 6 L 18 Blood Pressure 131/83 Pulse Oximetry 100 Intake & Output 07/27/18 07/28/18 07/28/18 18:59 06:59 18:59 Intake Total 2675 / 2675 300 / 300 1005 / 1005 Balance 2675 / 2675 300 / 300 1005 / 1005 Intake: IV 2675 / 2675 300 / 300 1005 / 1005 KCl Inj 10 MEQ In 1/2 Normal 2009 1005 / 1005 Saline Inj 1,000 ML @ 125 mls/ hr IV.CONT .Q8H3M [facility] Rx#: [id number] Ofirmev Inj 650 mg In 65 ml @ 65 / 65 400 mls/hr IV.SIG Q6H MONICA Rx#: [id number] Cipro 400 MG/200 ML Inj 400 mg 400 / 400 200 / 200 In 200 ml @ 200 mls/hr IV.SIG Q8H MONICA Rx#:[id number] Flagyl 500 MG Inj 100 ML @ 100 200 / 200 100 / 100 mls/hr IV.SIG Q8H MONICA Rx#: [id number] Other: Date of Last Bowel Movement 07/26/18 07/26/18 - Constitutional no acute distress - Routine HEENT Exam Head: Present: normocephalic - Routine Neck Exam Present: supple - Routine Respiratory Exam Present: CTA bilaterally - Routine Cardiovascular Exam Present: S1, S2 - Routine Abdominal Exam Present: soft, normoactive bowel sounds - Routine Extremities Exam Present: full ROM, pulses intact - Routine Skin Exam Present: intact - Routine Neurological Exam Present: alert, oriented X3 - Routine Psychiatric Exam Present: normal affect Results - Labs CBC & Chem 7: 07/27/18 07:16 07/27/18 07:16 Microbiology 07/26/18 08:25 Blood - Peripheral Aerobic Blood Culture - Preliminary No growth in 1 day 07/26/18 08:25 Blood - Peripheral Anaerobic Blood Culture - Preliminary No growth in 1 day 07/26/18 08:30 Blood - Peripheral Aerobic Blood Culture - Preliminary No growth in 1 day 07/26/18 08:30 Blood - Peripheral Anaerobic Blood Culture - Preliminary No growth in 1 day Assessment and Plan - Attending Attestation gastroparesis refractory to medical treatment nausea, bloating abdominal pain secondary gastroparesis abdominal pain in rlq secondary abnormal right ovary possible pid change in bowel habits-colon in am Recommendations egd/botox /colonoscopy in am clear liquid diet supportive care hydraulic press operator on the case
[2018-07-28] MEDS ORDERED: Magnesium Citrate Liq 300 ML Bottle PO ONE ×2 (10:00→16:00)
[2018-07-28] MEDS: Pantoprazole Inj 40 MG Vial IV.PUSH SCH (14:31)
[2018-07-29] MEDS: Ciprofloxacin 400 MG/200 ML 400 MG/200 ML PIGGYBACK IV.SIG SCH ×2 (02:19→09:38)
[2018-07-29] MEDS: Potassium Chloride Inj 10 MEQ in Sodium Chloride 0.45 % Inj 1,000 ML IV.CONT SCH ×2 (05:57→09:19)
--- NOTE | 2018-07-29 07:35 | MB ---
cc: Amado Storey MD, Mario C MD Dr. DATE: 07/26/2018 REASON FOR CONSULTATION: Abdominal pain, gastroparesis. HISTORY OF PRESENT ILLNESS: Ms. Fernandez is a 32-year-old lady with previous diagnosis of gastroparesis and irritable bowel syndrome. She has been having on and off abdominal pain for some time. She had an outpatient workup done about [address] scan, which was essentially unremarkable. She was supposed to have an EGD with Botox injection, but she says due to various reasons this was never scheduled. She says she basically came in because she had severe right lower quadrant abdominal pain starting yesterday. She says she has not had pains like this before. Typically when she has lower abdominal pain, it is resolved by a bowel movement; this time, her pains did not improve, so she came into the hospital. She says since being admitted, her pains have alleviated somewhat. She says she is having some diarrhea alternating with constipation, which is normal for her. REVIEW OF SYSTEMS: Lower abdominal pain, nausea, diarrhea alternating with constipation. PAST MEDICAL HISTORY: Anxiety disorder, asthma, history of cervical cancer, history of depression, IBS, gastroparesis. PAST SURGICAL HISTORY: Appendectomy, hysterectomy, tonsillectomy, appendectomy, EGD, colonoscopies in the past. SOCIAL HISTORY: Former smoker. No alcohol use. FAMILY HISTORY: Noncontributory. MEDICATIONS: 1. Ciprofloxacin. 2. Morphine. 3. Pantoprazole. ALLERGIES: HYDROMORPHONE, AMOXICILLIN. HOME MEDICATIONS: Include: 1. Ativan. 2. Effexor. 3. Albuterol. 4. Linzess. PHYSICAL EXAMINATION: GENERAL: Reveals a well-nourished lady in no apparent distress. VITAL SIGNS: Stable. HEAD AND NECK: Anicteric sclerae. LUNGS: Bilateral air entry with rales. ABDOMEN: Soft. Tenderness to palpation in the epigastric area and in the right lower quadrant. No guarding, no rigidity. CENTRAL NERVOUS SYSTEM: Nonfocal. LABORATORY DATA: Liver function tests are normal. Creatinine is 1. White cell count 13.4 with hemoglobin of 13.5. CT of the abdomen and pelvis reveals abnormal gas pattern suggesting ileus, small irregular shaped abnormal area of contrast enhancement in the right adnexal area. Ultrasound of the abdomen and pelvis shows possible inflammatory process versus collapsed ovarian cyst. IMPRESSION: Ileus, gastroparesis, lower abdominal pain. RECOMMENDATIONS: Etiology of right lower quadrant acute pain is unclear. The patient does have ongoing issues with pain. At this time, continue antibiotics. Symptoms seem to be improving. EGD with Botox and possible colonoscopy. Discussed with her for early next week. Dr. Sullivan will follow. Thank you for this referral. MD JOSE E Hernandez/elda , 03:53 PM , 04:00 PM
--- NOTE | 2018-07-29 08:00 | P.PN ---
Subjective Interval history: Patient pain is improved today. She was on a liquid diet yesterday but is NPO currently. She is scheduled for an EGD/colonoscopy at 4:00PM this afternoon. Physical Exam Vital signs: Vital Signs 07/28/18 08:00 07/28/18 12:00 07/28/18 16:00 Temperature 96.9 F L 96.7 F L 98.2 F Pulse Rate 47 L 50 L 51 L Respiratory Rate 20 20 20 Blood Pressure 99/54 L 97/58 L 124/73 Pulse Oximetry 98 98 98 07/28/18 20:20 07/28/18 23:28 07/29/18 00:00 Temperature 97.5 F L 97.9 F Pulse Rate 55 L 60 Respiratory Rate 18 16 Blood Pressure 138/99 H 92/52 L 94/53 L Pulse Oximetry 100 96 07/29/18 02:23 07/29/18 02:26 07/29/18 02:27 Temperature 98.4 F Pulse Rate 51 L Respiratory Rate 20 18 Blood Pressure 90/52 L Pulse Oximetry 96 96 94 L 07/29/18 04:55 07/29/18 04:59 Temperature Pulse Rate 50 L Respiratory Rate 16 18 Blood Pressure 98/54 L Pulse Oximetry 98 Intake & Output 07/28/18 07/29/18 07/29/18 18:59 06:59 18:59 Intake Total 2685 / 2685 1305 / 1305 Balance 2685 / 2685 1305 / 1305 Weight 72.1 kg Intake: IV 2610 / 2610 1305 / 1305 KCl Inj 10 MEQ In 1/2 Normal 2009 1005 / 1005 Saline Inj 1,000 ML @ 125 mls/ hr IV.CONT .Q8H3M [facility] Rx#: [id number] Cipro 400 MG/200 ML Inj 400 mg 400 / 400 200 / 200 In 200 ml @ 200 mls/hr IV.SIG Q8H MON[facility] Rx#:[id number] Flagyl 500 MG Inj 100 ML @ 100 200 / 200 100 / 100 mls/hr IV.SIG Q8H MONICA Rx#: [id number] Oral 75 / 75 Other: # Voids 7 # Bowel Movements 1 Narrative: This is a pleasant white female in no distress. HEENT: Pupils equal, EOMs intact, sclera nonicteric, mouth without lesions, nose without lesions Neck: No JVD, neck is supple, no carotid bruit Heart: Regular rate and rhythm without murmurs or gallops Lungs: Clear to auscultation Abdomen: Soft, no masses, no organomegaly. Her tenderness in the right lower abdomen is much better today with only minimal tenderness to palpation. She has slight tenderness in the RUQ and epigastric region but she states this is always a little tender secondary to her gastroparesis. No rebound tenderness Extremities: No edema, pulses palpated, no calf tenderness Neuro: Alert, oriented Results - Labs CBC & Chem 7: 07/27/18 07:16 07/27/18 07:16 Microbiology 07/26/18 08:25 Blood - Peripheral Aerobic Blood Culture - Preliminary No growth in 2 days 07/26/18 08:25 Blood - Peripheral Anaerobic Blood Culture - Preliminary No growth in 2 days 07/26/18 08:30 Blood - Peripheral Aerobic Blood Culture - Preliminary No growth in 2 days 07/26/18 08:30 Blood - Peripheral Anaerobic Blood Culture - Preliminary No growth in 2 days CBC pending today Assessment and Plan - Assessment (1) Ileus Code(s): K56.7 - Ileus, unspecified Status: Acute Plan: This is clinically resolved. (2) Abdominal pain Code(s): R10.9 - Unspecified abdominal pain Status: Acute Plan: Her abdominal pain is much improved. (3) Anxiety Code(s): F41.9 - Anxiety disorder, unspecified Status: Acute (4) Right ovarian cyst Code(s): N83.201 - Unspecified ovarian cyst, right side Status: Acute (5) Gastroparesis Code(s): K31.84 - Gastroparesis Status: Chronic - Plan Plan: Patient is scheduled for a EGD/colonoscopy later this afternoon so I will await those results. She is clinically better in regard to her pain this morning but isn't currently eating due to her pending endoscopy procedures. Await GI recommendations about when she can be discharged after the procedures are done. If discharged I will likely give her Cipro and Flagyl to use at home for a few days. She will followup with her retail representative also as an outpatient to recheck the right ovarian cyst.. The retail representative doctor who saw her in the hospital thought it would be unlikely for her to get a tubo-ovarian abscess of the right ovary because she has had a prior hysterectomy.
[2018-07-29] MEDS ORDERED: ONABOTULINUMTOXINA 100 UNIT I-DERMAL SCH (09:00)
[2018-07-29] MEDS: Dicyclomine 10 MG Capsule PO SCH ×2 (09:04→14:39)
[2018-07-29] MEDS: Venlafaxine XR 75 MG Capsule PO SCH (09:04)
[2018-07-29 09:08] LABS: Baso % (Auto) 0.5 % (0.0-2.0); Eos # (Auto) 0.4 th/mm3 (0.0-0.4); Eos % (Auto) 4.9 % (0.0-4.0); Hematocrit 34.9 % (35.0-46.0); Hemoglobin 11.9 gm/dL (11.6-15.3); Lymph # (Auto) 1.4 th/mm3 (1.0-4.8); Lymph % (Auto) 17.2 % (9.0-44.0); Mean Corpuscular Hemoglobin 30.4 pg (27.0-34.0); Mean Corpuscular Volume 89.4 fL (80.0-100.0); Mean Platelet Volume 9.7 fL (7.0-11.0); Mono # (Auto) 0.6 th/mm3 (0.0-0.9); Neut # (Auto) 5.8 th/mm3 (1.8-7.7); Neut % (Auto) 70.4 % (16.0-70.0); Platelet Count 252 th/mm3 (150-450); Red Cell Distribution Width 13.2 % (11.6-17.2); White Blood Count 8.2 th/mm3 (4.0-11.0)
[2018-07-29] MEDS: Morphine Inj 4 MG/ML Vial IV.PUSH PRN (09:34)
[2018-07-29] MEDS ORDERED: fentaNYL Citrate Inj 100 MCG/2 ML Ampul ONE (12:49)
[2018-07-29] MEDS ORDERED: Chlorhexidine Gluconate 2% 1 Pack (2 Cloths) TOPICAL ONE (13:03)
[2018-07-29] MEDS ORDERED: Sodium Chlor 0.9% Inj 500 ML IV.SIG SCH (14:00)
--- NOTE | 2018-07-29 14:00 | GIPROC ---
[facility] [address] [place] [address], [id number] EGD PROCEDURE REPORT EXAM DATE: 07/29/2018 PATIENT NAME: Anali Fernandez MR #: [id number] BIRTHDATE: 1985 ATTENDING: Kendall Mora MD ORDER #: [id number] WAXER OPERATOR: Treva Marie and Mary Urias STATUS: inpatient INDICATIONS: The patient is a 32 yr old female here for an EGD due to vomiting and nausea PROCEDURE PERFORMED: EGD w/ directed injection of BOTOX MEDICATIONS: None and Per Anesthesia. TOPICAL ANESTHETIC: none CONSENT: The patient understands the risks and benefits of the procedure and understands that these risks include, but are not limited to: sedation, allergic reaction, infection, perforation and/or bleeding. Alternative means of evaluation and treatment include, among others: physical exam, x-rays, and/or surgical intervention. The patient elects to proceed with this endoscopic procedure. medical equipment was checked for proper function. Hand hygiene and appropriate measures for infection prevention was taken. After the risks, benefits and alternatives of the procedure were thoroughly explained, Informed consent was verified, confirmed and timeout was successfully executed by the treatment team. The patient was anesthetized with topical anesthesia and the EC-3490Li (Pedi C) endoscope was introduced through the mouth and advanced to the second portion of the duodenum. Retroflexion was performed and was normal The gastroscope was then slowly withdrawn and removed. ESOPHAGUS: The esophagus was otherwise normal. STOMACH: The mucosa of the stomach appeared normal. DUODENUM: The duodenal mucosa appeared normal in the ampulla and 2nd part duodenum. ADVERSE EVENTS: There were no complications. IMPRESSIONS: 1. The esophagus was otherwise normal 2. The mucosa of the stomach appeared normal , BOTOX injected at the pyloric ring 3. Normal duodenal mucosa in the ampulla and 2nd part duodenum 4. Retroflexion was performed and was normal RECOMMENDATIONS: 1. Small frequent meals 2. Anti-reflux regimen PATIENT CONDITION: stable DISPOSITION: Observation REPEAT EXAM: NONE Kendall Mora MD eSigned: Kendall Mora MD 07/29/2018 1:59 PM cc: PATIENT NAME: Anali Fernandez MR#: [id number]
--- NOTE | 2018-07-29 14:03 | GIPROC ---
[address], [address] COLONOSCOPY PROCEDURE REPORT EXAM DATE: 07/29/2018 PATIENT NAME: Anali Fernandez MR #: [id number] BIRTHDATE: 1985 ENDOSCOPIST: Kendall Mora MD ORDER #: [id number] SURG NURSE: Mary Urias RN STATUS: inpatient INDICATIONS: The patient is a 32 yr old female here for a colonoscopy due to patient's immediate family history of colon cancer PROCEDURE PERFORMED: Colonoscopy, diagnostic MEDICATIONS: None and Per Anesthesia. PREP QUALITY: fair PREP TYPE:GoLytely ESTIMATED BLOOD LOSS: None CONSENT: The patient understands the risks and benefits of the procedure and understands that these risks include, but are not limited to: sedation, allergic reaction, infection, perforation and/or bleeding. Alternative means of evaluation and treatment include, among others: physical exam, x-rays, and/or surgical intervention. The patient elects to proceed with this endoscopic procedure. medical equipment was checked for proper function. Hand hygiene and appropriate measures for infection prevention was taken. After the risks, benefits and alternatives of the procedure were thoroughly explained, Informed consent was verified, confirmed and timeout was successfully executed by the treatment team. A digital exam was performed and revealed no abnormalities of the rectum The Pentax EC-[id number] endoscope was introduced through the anus and advanced to the cecum, which was identified by both the appendix and ileocecal valve. The instrument was then slowly withdrawn as the colon was fully examined. COLON FINDINGS: The colonic mucosa appeared normal throughout the entire examined colon, at the ileocecal valve, and in the terminal ileum. Retroflexed views revealed no abnormalities The scope was then completely withdrawn from the patient and the procedure terminated. PROCEDURE WITHDRAWAL TIME:7minutes ADVERSE EVENTS: There were no complications. IMPRESSIONS: 1. The colonic mucosa appeared normal throughout the entire examined colon, at the ileocecal valve, and in the terminal ileum 2. Retroflexed views revealed no abnormalities RECOMMENDATIONS: Continue surveillance RECALL: Return 5 years Colonoscopy Kendall Mora MD eSigned: Kendall Mora MD 07/29/2018 2:03 PM cc:
[2018-07-29 14:13] VITALS: TEMP 97.6
[2018-07-29 14:25] VITALS: BP 125/69; PULSE 57; RESP 16; O2SAT 96
[2018-07-29] MEDS: Pantoprazole Inj 40 MG Vial IV.PUSH SCH (14:39)
--- NOTE | 2018-07-29 16:46 | P.DS ---
Date of admission: 07/26/18 09:32 Primary care physician: Sadia Fontenot MD Attending physician on discharge: Alphonso Rizwana Campbell Anticipated date of discharge: 07/29/18 Brief History from admission: 32-year-old white female came to the emergency room with some right lower few days. She has history of chronic gastroparesis. She has been seen by strike planning applications as outpatient for these problems. She has had prior hysterectomy and appendectomy in the past. Her history of hysterectomy was for cervical cancer. She still has her ovaries. She complained of pain that was at times severe and stabbing in the right lower quadrant and other times dull. She also had a dull pain is well. At times the pain would be in the epigastric and right upper quadrant. A CAT scan done in the emergency room showed an ill and possible rupture of an ovarian cyst on the right side. She was seen initially by the pecan huller who was not certain that the cyst was the cause of her pain. She was put on Cipro and Flagyl IV to cover for possible infection. Patient update on day of discharge: Patient just had an upper endoscopy and colonoscopy in the early afternoon which showed normal findings in the upper endoscopy. Botox was injected at the pyloric ring. Her colonoscopy showed no abnormalities. I just went in to see her and she states she is feeling good enough to go home and would like to go home. Her pain was much less this morning when I examined her earlier today with only minimal tenderness in the right lower much improved from when I saw her 2 days ago. The GI doctor just recommended small frequent meals and continue on her antireflux regimen. DS: Diagnosis - Discharge Diagnosis (1) Ileus Status: Acute (2) Abdominal pain Status: Acute (3) Anxiety Status: Acute (4) Right ovarian cyst Status: Acute (5) Gastroparesis Status: Chronic DS: Medications - Discharge Medications Prescriptions: ciprofloxacin HCl [Cipro] 500 mg PO Q12H 5 Days #10 tab dicyclomine 10 mg PO QID PRN 10 Days #40 cap PRN Reason: Abdominal Pain metronidazole [Flagyl] 500 mg PO TID 5 Days #15 tab DS: Summary Hospital Course: Patient was initially admitted and seen by pecan huller. She was put on Cipro and Flagyl IV on admission. A gastroentero urology consult was placed and subsequently seen by by gastroenterology who recommended an EGD and colonoscopy. Dr. Olea saw her for [facility] on the day of admission. I subsequently took over on 07-27-18. The pecan huller transferred the patient to my service over the weekend. She was given a liquid diet over the weekend and tolerated that and then was maintained n.p.o. today for her endoscopy procedures. Her pain is gradually improved on each day in the hospital. She only had minimal pain on exam in the right lower quadrant this morning. Her endoscopy procedures were negative as mentioned. She will be discharged today to follow-up with her PCP within 1 week and with the strike planning applications within 2 weeks. Discharge medications: Cipro 500 mg twice a day for 5 days Metronidazole 500 mg 3 times a day for 5 days Dicyclomine 10 mg 4 times a day as needed for abdominal cramps She will continue on her Effexor XR 75 mg daily and Lorazepam 2 mg 3 times a day. She also has omeprazole at home that she will continue. - Time Spent with Patient Total time spent providing and/or coordinating discharge services: Greater than 30 minutes - Quality: VTE Deep Vein Thrombosis/Pulmonary Embolism Present on Admission: No Exam Vital signs: Vital Signs 07/28/18 20:20 07/28/18 23:28 07/29/18 00:00 Temperature 97.5 F L 97.9 F Pulse Rate 55 L 60 Respiratory Rate 18 16 Blood Pressure 138/99 H 92/52 L 94/53 L Pulse Oximetry 100 96 07/29/18 02:23 07/29/18 02:26 07/29/18 02:27 Temperature 98.4 F Pulse Rate 51 L Respiratory Rate 20 18 Blood Pressure 90/52 L Pulse Oximetry 96 96 94 L 07/29/18 04:55 07/29/18 04:59 07/29/18 08:00 Temperature 98.4 F Pulse Rate 50 L 46 L Respiratory Rate 16 18 18 Blood Pressure 98/54 L 113/63 Pulse Oximetry 98 95 07/29/18 09:22 07/29/18 12:34 07/29/18 14:00 Temperature 98.0 F 97.6 F Pulse Rate 59 L 47 L 67 Respiratory Rate 16 16 14 Blood Pressure 110/61 116/73 106/70 Pulse Oximetry 100 98 97 07/29/18 14:07 07/29/18 14:22 Temperature Pulse Rate 56 L 57 L Respiratory Rate 14 16 Blood Pressure 108/69 125/69 Pulse Oximetry 100 96 Intake & Output 07/28/18 07/29/18 07/29/18 18:59 06:59 18:59 Intake Total 2685 / 2685 1305 / 1305 2505 / 2505 Balance 2685 / 2685 1305 / 1305 2505 / 2505 Weight 72.1 kg Intake: IV 2610 / 2610 1305 / 1305 1305 / 1305 KCl Inj 10 MEQ In 07/24 Normal 2009 1005 / 1005 1005 / 1005 Saline Inj 1,000 ML @ 125 mls/ hr IV.CONT .Q8H3M [facility] Rx#: [id number] Cipro 400 MG/200 ML Inj 400 mg 400 / 400 200 / 200 200 / 200 In 200 ml @ 200 mls/hr IV.SIG Q8H [facility] Rx#:[id number] Flagyl 500 MG Inj 100 ML @ 100 200 / 200 100 / 100 100 / 100 mls/hr IV.SIG Q8H [facility] Rx#: [id number] Oral 75 / 75 Anesthesia Amount 1200 / 1200 Other: # Voids 7 Date of Last Bowel Movement 07/28/18 # Bowel Movements 1 Narrative: This is a pleasant white female in no distress. HEENT: Pupils equal, EOMs intact, sclera nonicteric, mouth without lesions, nose without lesions Neck: No JVD, neck is supple, no carotid bruit Heart: Regular rate and rhythm without murmurs or gallops Lungs: Clear to auscultation Abdomen: Soft, no masses, no organomegaly. Her tenderness in the right lower abdomen is much better today with only minimal tenderness to palpation. She has slight tenderness in the RUQ and epigastric region but she states this is always a little tender secondary to her gastroparesis. No rebound tenderness Extremities: No edema, pulses palpated, no calf tenderness Neuro: Alert, oriented Results Procedures completed during hospitalization: EGD normal on 07-29-18 with Botox injected into the pyloric channel Colonoscopy on 07-29-18 that was normal. Completed studies during hospitalization: Abdomen/Pelvis CT 07/26/18 06:27 CONCLUSION: 1. Abnormal bowel gas pattern suggesting ileus 2. Small irregularly-shaped abnormal area of contrast enhancement in the right adnexa region. This could be related to inflammatory process. There is no ascites. 3. Correlation suggested. Abdomen/Pelvis/Transvag US 07/26/18 07:49 CONCLUSION: 1. Abnormal right adnexa region. Considerations include inflammatory process and more likely a collapsing right ovarian cyst with trace free fluid. 2. Symmetrical blood flow in both adnexa. 3. Discussed with the ER physician. Labs on day of discharge: Labs from last 24 hours 07/29/18 08:17 CBC w Diff Auto diff final WBC 8.2 RBC 3.90 L Hgb 11.9 Hct 34.9 L MCV 89.4 MCH 30.4 MCHC 34.0 RDW 13.2 Plt Count 252 MPV 9.7 Neut % (Auto) 70.4 H Lymph % (Auto) 17.2 [place] % (Auto) 7.0 Eos % (Auto) 4.9 H Baso % (Auto) 0.5 Neut # (Auto) 5.8 Lymph # (Auto) 1.4 [place] # (Auto) 0.6 Eos # (Auto) 0.4 Baso # (Auto) 0.0 WBC Differential . Differential Comment . Preliminary micro results at discharge 07/26/18 08:25 Aerobic Blood Culture - Preliminary Blood - Peripheral No growth in 3 days Anaerobic Blood Culture - Preliminary No growth in 3 days 07/26/18 08:30 Aerobic Blood Culture - Preliminary Blood - Peripheral No growth in 3 days Anaerobic Blood Culture - Preliminary No growth in 3 days Laboratory Tests 07/26/18 07/26/18 07/26/18 06:30 06:35 06:35 CBC w Diff Auto diff final WBC 13.4 H RBC 4.34 Hgb 13.5 Hct 39.0 MCV 89.9 MCH 31.1 MCHC 34.7 RDW 13.1 Plt Count 332 MPV 9.0 Neut % (Auto) 83.8 H Lymph % (Auto) 8.2 L [place] % (Auto) 4.4 Eos % (Auto) 0.5 Baso % (Auto) 3.1 H Neut # (Auto) 11.2 H Lymph # (Auto) 1.1 [place] # (Auto) 0.6 Eos # (Auto) 0.1 Baso # (Auto) 0.4 H WBC Differential . Differential Comment . Sodium 137 Potassium 4.2 Chloride 108 H Carbon Dioxide 19.5 L Anion Gap 10 BUN 10 Creatinine 1.00 Estimated GFR 64 L Random Glucose 125 H Lactic Acid Calcium 9.4 Magnesium 2.3 Total Bilirubin 0.5 AST 13 L ALT 19 Alkaline Phosphatase 66 Total Protein 8.2 Albumin 4.4 Lipase 125 Beta HCG, Quant Ur Collection Type Clean catch Urine Color Yellow Urine Clarity Clear Urine pH 5.5 Ur Specific [place] Greater/equal 1.030 Urine Protein Negative Urine Glucose (UA) Negative Urine Ketones Negative Urine Occult Blood Trace Urine Nitrate Negative Urine Bilirubin Negative Urine Urobilinogen 0.2 Ur Leukocyte Esterase Negative Urine RBC 0-3 Ur Squamous Epith Cells 0-5 Micro UA Comment Culture not ind Ur Microscopic Review Microscopic reviewed Urine Culture Comments Culture not ind 07/26/18 07/26/18 07/27/18 06:35 08:25 07:16 CBC w Diff Auto diff final WBC 6.0 RBC 3.65 L Hgb 11.1 L D Hct 33.3 L MCV 91.3 MCH 30.5 MCHC 33.4 RDW 14.0 Plt Count 232 D MPV 9.2 Neut % (Auto) 47.5 Lymph % (Auto) 39.9 [place] % (Auto) 6.8 Eos % (Auto) 4.9 H Baso % (Auto) 0.9 Neut # (Auto) 2.8 Lymph # (Auto) 2.4 [place] # (Auto) 0.4 Eos # (Auto) 0.3 Baso # (Auto) 0.1 WBC Differential . Differential Comment . Sodium Potassium Chloride Carbon Dioxide Anion Gap BUN Creatinine Estimated GFR Random Glucose Lactic Acid 0.9 Calcium Magnesium Total Bilirubin AST ALT Alkaline Phosphatase Total Protein Albumin Lipase Beta HCG, Quant Less than 1 Ur Collection Type Urine Color Urine Clarity Urine pH Ur Specific [place] Urine Protein Urine Glucose (UA) Urine Ketones Urine Occult Blood Urine Nitrate Urine Bilirubin Urine Urobilinogen Ur Leukocyte Esterase Urine RBC Ur Squamous Epith Cells Micro UA Comment Ur Microscopic Review Urine Culture Comments 07/27/18 07/29/18 07:16 08:17 CBC w Diff Auto diff final WBC 8.2 RBC 3.90 L Hgb 11.9 Hct 34.9 L MCV 89.4 MCH 30.4 MCHC 34.0 RDW 13.2 Plt Count 252 MPV 9.7 Neut % (Auto) 70.4 H Lymph % (Auto) 17.2 [place] % (Auto) 7.0 Eos % (Auto) 4.9 H Baso % (Auto) 0.5 Neut # (Auto) 5.8 Lymph # (Auto) 1.4 [place] # (Auto) 0.6 Eos # (Auto) 0.4 Baso # (Auto) 0.0 WBC Differential . Differential Comment . Sodium 138 Potassium 4.0 Chloride 112 H Carbon Dioxide 20.4 L Anion Gap 6 BUN 5 L Creatinine 0.88 Estimated GFR 74 L Random Glucose 94 Lactic Acid Calcium 8.1 L D Magnesium Total Bilirubin AST ALT Alkaline Phosphatase Total Protein Albumin Lipase Beta HCG, Quant Ur Collection Type Urine Color Urine Clarity Urine pH Ur Specific [place] Urine Protein Urine Glucose (UA) Urine Ketones Urine Occult Blood Urine Nitrate Urine Bilirubin Urine Urobilinogen Ur Leukocyte Esterase Urine RBC Ur Squamous Epith Cells Micro UA Comment Ur Microscopic Review Urine Culture Comments - Impressions ITS Impressions Abdomen/Pelvis CT 07/26/18 06:27 CONCLUSION: 1. Abnormal bowel gas pattern suggesting ileus 2. Small irregularly-shaped abnormal area of contrast enhancement in the right adnexa region. This could be related to inflammatory process. There is no ascites. 3. Correlation suggested. Abdomen/Pelvis/Transvag US 07/26/18 07:49 CONCLUSION: 1. Abnormal right adnexa region. Considerations include inflammatory process and more likely a collapsing right ovarian cyst with trace free fluid. 2. Symmetrical blood flow in both adnexa. 3. Discussed with the ER physician. Discharge Plan - Discharge Disposition Patient Disposition: Discharge Home - Discharge Condition Condition: Good - Discharge Order Discharge Orders: Discharge Order (Routine); Ordered 07/29/18 Ordered By: Alphonso Campbell ED Use Only Admit Order (Routine); Ordered 07/26/18 Ordered By: Dilip Moreno - Discharge Details Anticipated Discharge Date: 07/29/18 Discharge Comment: Eat smaller feedings because of her gastroparesis - Physicians Team Primary Care Provider: Sadia Fontenot Attending Provider: Alphonso Campbell Other Providers: Luis Miguel Henriquez MD ; Rajendra Olea MD
== END 2018-07-29 17:27 | disposition home or self-care (01) | DRG 390 ==
LOC: PHED 06:10 → PHEDA 06:10 → PH3 12:09
PROVIDERS: ADMIT Family Medicine; ATTEND Family Medicine
PROC: COLONOS (2018-07-29 13:21)
PROC: PANENDO (2018-07-29 13:21)
CPT/HCPCS: 74177; 76830; 76856; 80048; 80053; 81001; 83605; 83690; 83735; 84702; 85025; 87040; 87506; 93975; C9113; J0131; J0744; J1885; J2060; J2250; J2270; J2405; J2704; J3010; J3480; J7030; J7120; Q9967